=== PATIENT | female | born 1995 | race African-American/Black ===

== ENCOUNTER 2016-08-15 00:16 | Emergency (ER) | payer MEDICAID ==
[~2016-08-15] VITALS: Ht 162.6 cm; Wt 83.0 kg
[~2016-08-15 00:16] MED LIST: PREN-88 PO
[2016-08-15 04:56] VITALS: BP 126/82
== END 2016-08-15 05:00 | disposition home or self-care (01) ==
LOC: ER 00:16
DX: S80.12XA Contusion of left lower leg, initial encounter (principal); Y08.89XA Assault by other specified means, initial encounter; Y93.89 Activity, other specified; Y92.89 Other specified places as the place of occurrence of the external cause; Y99.8 Other external cause status
CPT/HCPCS: 73562; 73590; 81025; 99284; Z7610

== ENCOUNTER 2018-06-05 14:31 | Observation (INO) | payer MEDICAID | END 2018-06-05 17:50 | disposition home or self-care (01) | LOC: 8 EST LDRP 14:31 | PROVIDERS: ADMIT Obstetrics & Gynecology; ATTEND Obstetrics & Gynecology | DX: O62.9 Abnormality of forces of labor, unspecified (principal); O26.893 Other specified pregnancy related conditions, third trimester; R10.9 Unspecified abdominal pain; Z3A.37 37 weeks gestation of pregnancy | CPT/HCPCS: 76805; 76818; 99281; G0378 ==

== ENCOUNTER 2023-06-04 19:01 | Emergency (ER) | payer MEDICAID ==
[~2023-06-04] VITALS: Ht 157.5 cm; Wt 65.0 kg
[2023-06-04 19:04] VITALS: O2SAT 100
[2023-06-04 20:00] VITALS: BP 142/81; PULSE 96; RESP 26; TEMP 98.2
== END 2023-06-04 20:49 | disposition home or self-care (01) ==
LOC: ER 19:01
DX: S51.812D Laceration without foreign body of left forearm, subsequent encounter (principal); Z98.890 Other specified postprocedural states; X58.XXXD Exposure to other specified factors, subsequent encounter
CPT/HCPCS: 99283